=== PATIENT | male | born 1985 | race Caucasian/White ===

== ENCOUNTER 2021-02-14 18:08 | Emergency (ER) | payer SELFPAY ==
--- NOTE | 2021-02-14 18:16 | XRR_ITS ---
PROCEDURE INFORMATION: Exam: XR Right Hand Exam date and time: 02/14/2021 6:16 PM Age: 35 years old Clinical indication: Pain; Hand; Right; Additional info: Focus on the R thumb TECHNIQUE: Imaging protocol: XR Right hand. Views: 3 or more views. COMPARISON: No relevant prior studies available. FINDINGS: Bones/joints: Unremarkable. No fracture or dislocation. Soft tissues: Mild soft tissue swelling is observed in the thumb. XR/XR hand RT min 3V* [id number] IMPRESSION: No fracture or dislocation.
[2021-02-14 18:17] VITALS: BP 189/107; PULSE 83; RESP 18; TEMP 36.8; O2SAT 97; BMI 46.1
--- NOTE | 2021-02-14 18:34 | ED_ITS ---
HPI - Extremity Problem General: Chief complaint: Extremity Injury, Upper Stated complaint: R Swollen Thumb\Cant Bend Time Seen by Provider: 02/14/21 18:27 History of Present Illness: HPI Narrative: Patient complains about right thumb pain's been hurting for the last couple 3 days in the joint area. No known injury. MD Complaint: extremity pain, joint swelling and joint pain Onset (ago): day(s) Pain Consistency: constant Location: right and upper extremity Severity scale (1-10): 3 Quality: aching Radiation: proximal Relieving factors: immobilization Exacerbating factors: range of motion Associated symptoms: Reports no associated symptoms; Deny chest pain, fever(s) or rash Review of Systems Narrative: Blood sugars have been normal Const: Denies: fever(s), chills or body aches Eyes: Denies: change in vision or blurry vision ENMT: Denies: throat pain or nasal congestion Card: Denies: chest pain or dyspnea on exertion Resp: Denies: dyspnea, productive cough or non-productive cough GI: Denies: abdominal pain, nausea or vomiting : Denies: difficulty urinating Musc: Reports: joint pain (Right thumb hurting x2 to 3 days slight redness no known injury); Denies: extremity pain Skin/Breast: Denies: rash Neuro: Denies: headache(s) Psych: Denies: anxiety or depression Albert/Lymph: Denies: easy bruising PFSH ED PFSH: Social History Smoking and tobacco status: former smoker Physical Exam Const: COMMON NORMALS: no acute distress, average body habitus and patient oriented x3 HENMT: COMMON NORMALS: normocephalic HEAD & SCALP: normal to inspection and normocephalic FACE & SINUS: normal facial exam Eye: COMMON NORMALS: conjunctivae normal GENERAL EYE: appearance normal, both eyes and all related structures CONJUNCTIVA: Yes conjunctivae normal Neck/C-Spine: COMMON NORMALS: no JVD Chest: COMMONS NORMALS: normal inspection of the chest Resp: COMMON NORMALS: normal respiratory effort and clear to auscultation bilaterally AUSCULTATION: clear to auscultation bilaterally Cardio: COMMON NORMALS: no JVD, regular rate and regular rhythm RATE: regular rate RHYTHM: regular rhythm GI: COMMON NORMALS: Normal to inspection, nondistended, normoactive bowel sounds present Extremity: COMMON NORMALS: normal to inspection and full ROM RIGHT UPPER EXTREMITY: Yes hand & digits (Right thumb with slight redness to the DIP joint tenderness to palpation mi) Right hand and digits: Yes other (No redness tenderness or swelling to the metacarpal joint) Neuro: COMMON NORMALS: patient oriented x3 Course Vital Signs: Vital signs: Vital Signs Temperature 98.2 F 02/14/21 18:17 Pulse Rate 83 02/14/21 18:17 Respiratory Rate 18 02/14/21 18:17 Blood Pressure 189/107 02/14/21 18:17 Pulse Oximetry 97 02/14/21 18:17 MDM - Extremity (Nontraumatic) MDM Narrative: Medical decision making narrative: X-rays negative, no entry wound to the thumb, does have slight redness. Will treat with steroid with possible joint inflammation and cover with antibiotic due to him being diabetic. Patient has no fever. Has not been sick. Will follow up with his provider in [place]. Discharge Plan Discharge Patient Disposition: Home Clinical Impression: Pain of right thumb Condition: Stable Prescriptions: New clindamycin HCl 300 mg capsule 300 mg PO Q8H 7 Days Qty: 21 RF: 0 prednisone 20 mg tablet 20 mg PO DAILY Qty: 7 RF: 0 No Action metformin 500 mg tablet 500 mg PO BID RF: 0 lisinopril 10 mg tablet 10 mg PO DAILY RF: 0 omeprazole 40 mg capsule,delayed release(DR/EC) 40 mg PO DAILY 56 Days Qty: 60 RF: 0 Lasix 20 mg Tablet 5 mg PO QAM RF: 0 Discharge Orders: Discharge ED (Routine); Ordered 02/14/21 Ordered By: Ad aKte Discharge Diet: Usual diet Discharge Activity: Increase activity as tolerated Activity Restrictions/Additional Instructions: Follow-up with medical provider as directed. Take medications as prescribed. Return to the ER or your medical provider if condition worsens. Please read and understand discharge instructions. If any questions ask please. Coding Level of Care Code ED Countersinker Balance Screw Hole for Delia Henson Exam Comprehensive
== END 2021-02-14 18:34 | disposition home or self-care (01) ==
PROVIDERS: Emergency Provider Nurse Practitioner Family
DX: M79.644 Pain in right finger(s) (principal); Z79.84 Long term (current) use of oral hypoglycemic drugs; Z87.891 Personal history of nicotine dependence
CPT/HCPCS: 73130; 99281

== ENCOUNTER 2021-07-04 10:28 | Emergency (ER) | payer SELFPAY ==
[2021-07-04 10:37] VITALS: BP 160/97; PULSE 108; RESP 18; TEMP 36.7; O2SAT 96; BMI 45.6
--- NOTE | 2021-07-04 10:53 | XR_ITS ---
WS: [id number] PORTABLE CHEST HISTORY: cough COMPARISON: None available. Lungs are clear and well expanded. No pleural effusion or pneumothorax. Cardiac size: Normal. Mediastinum/Aorta: Normal mediastinum. No osseous abnormality seen. XR/XR chest 1V portable [id number] IMPRESSION: Unremarkable portable chest.
[2021-07-04 13:53] LABS: SARS Covid-2 Antigen Negative (Negative)
--- NOTE | 2021-07-04 14:12 | ED_ITS ---
HPI - General Adult General: Chief complaint: General Medical Stated complaint: Pain in chest when breathing with cough Time Seen by Provider: 07/04/21 14:12 Source: patient Mode of arrival: ambulatory Limitations: no limitations History of Present Illness: 35-year-old male presents to the ER today for a cough x1 week and right-sided chest pain that is worse with cough. Patient reports the right-sided chest pain has started in the last 24 to 48 hours but only occurs while he is coughing. This pain is located on the right anterior chest and radiates into the right posterior chest. Patient denies any shortness of breath other than with coughing fits. Patient reports his cough is productive at this time. He denies any congestion, runny nose, headache, ear pain, sore throat. Patient reports he is been taking Mucinex liquid with minimal improvement. His is sick with similar symptoms. Patient denies any nausea or vomiting at this time. Onset (ago): week(s) (1) Treatments prior to arrival: NSAID and other (Mucinex) Review of Systems General: Reports: 10 or more systems reviewed and unremarkable except in HPI and below PFSH ED PFSH: Social History Smoking and tobacco status: former smoker Physical Exam Const: COMMON NORMALS: no acute distress, patient oriented x3, no limitations, healthy appearing, alert and well nourished HENMT: COMMON NORMALS: normocephalic, external ears normal, Normal nasal mucous membranes and turbinates present, moist oral mucous membranes and oropharynx normal HEAD & SCALP: normocephalic NOSE: Normal nasal mucous membranes and turbinates present EXTERNAL EAR: Yes external ears normal Eye: COMMON NORMALS: conjunctivae normal CONJUNCTIVA: Yes conjunctivae normal Neck/C-Spine: COMMON NORMALS: full ROM and no lymphadenopathy Resp: COMMON NORMALS: normal respiratory effort, No retractions, No use of accessory muscles and clear to auscultation bilaterally AUSCULTATION: clear to auscultation bilaterally Cardio: COMMON NORMALS: regular rate and regular rhythm RATE: regular rate RHYTHM: regular rhythm GI: COMMON NORMALS: Normal to inspection, nondistended, normoactive bowel sounds present OTHER: Obese Extremity: COMMON NORMALS: normal to inspection and full ROM Neuro: COMMON NORMALS: patient oriented x3 SENSORIUM/ORIENTATION: Yes alert Psych: COMMON NORMALS: mental status grossly normal, Normal thought process present and cooperative THOUGHT PROCESS: Normal thought process present Skin: COMMON NORMALS: no rashes or lesions noted GENERAL SKIN EXAM: no rashes or lesions noted Course ED course: Patient presents to the ER today for a cough x1 week. Patient reports right-sided chest pain for the last 24 to 48 hours that is worse with cough. Patient denies any fever or chills. We will Covid swab in the ER in addition to a chest x-ray and labs. Vital Signs: Vital signs: Vital Signs Temperature 98.0 F 07/04/21 10:37 Pulse Rate 108 H 07/04/21 10:37 Respiratory Rate 18 07/04/21 10:37 Blood Pressure 160/97 07/04/21 10:37 Pulse Oximetry 96 07/04/21 10:37 [facility] - General Adult Medical Decision Making 35-year-old male presents to the ER today for a productive cough x1 week and right-sided chest pain that is worse with his cough. Patient denies headache, fever, chills, ear pain, congestion, runny nose, sore throat. Patient reports he has been taken Mucinex with minimal improvement. Patient reports the chest pain only occurs when he is coughing and does not appear cardiac related. Patient's is sick with similar symptoms. Chest x-ray is normal that was done in the ER today. Labs are normal. Covid is negative. Discussed with patient this is likely a viral bronchitis. Will treat with steroids at this time. We will also treat with Tessalon Perles for the cough. Recommended patient take anti-inflammatories at home for pain. Increase fluid intake. Continue Mucinex. Follow-up with PCP in 7 to 10 days if no improvement. Return to the ER with any new or worsening symptoms. Patient verbalized understanding and is in agreement with the treatment plan. Lab Data Radiology Impressions Chest X-Ray 07/04/21 10:53 IMPRESSION: Unremarkable portable chest. Laboratory Results SARS-CoV-2 Ag (Rapid) Negative (Negative) 07/04/21 13:05 Discharge Plan Discharge Patient Disposition: Home Clinical Impression: Bronchitis Condition: Stable Prescriptions: New prednisone 20 mg tablet 40 mg PO DAILY 4 Days 0RF Tessalon Perles 100 mg capsule 100 mg PO TID PRN (Reason: cough) Qty: 30 0RF Discontinued prednisone 20 mg tablet 20 mg PO DAILY Qty: 7 0RF No Action metformin 500 mg tablet 500 mg PO BID 0RF lisinopril 10 mg tablet 10 mg PO DAILY 0RF omeprazole 40 mg capsule,delayed release(DR/EC) 40 mg PO DAILY 56 Days Qty: 60 0RF Lasix 20 mg Tablet 5 mg PO QAM 0RF Discharge Orders: Discharge ED (Routine); Ordered 07/04/21 Ordered By: Venus Knight Discharge Diet: Usual diet Discharge Activity: Resume usual activity Patient Instructions: Opioid Safety Activity Restrictions/Additional Instructions: Take Tessalon Perles as prescribed. Take prednisone as prescribed. Push fluids. Take anti-inflammatories for pain. Follow-up with PCP in 7 to 10 days if no improvement. Return to the ER with new or worsening symptoms. Stand Alone Forms: Work/School Release Coding Level of Care Code ED Message And Delivery Service Pricer for Delia Henson
[2021-07-04 14:29] VITALS: BP 163/95; PULSE 82; RESP 18; O2SAT 96
== END 2021-07-04 14:30 | disposition home or self-care (01) ==
PROVIDERS: Emergency Provider Physician Assistant
DX: J40 Bronchitis, not specified as acute or chronic (principal); Z79.84 Long term (current) use of oral hypoglycemic drugs; Z87.891 Personal history of nicotine dependence; Z20.822 Contact with and (suspected) exposure to COVID-19
CPT/HCPCS: 71045; 87426; 99283

== ENCOUNTER 2021-07-17 18:22 | Emergency (ER) | payer SELFPAY ==
[2021-07-17 18:37] VITALS: BP 192/120; PULSE 84; RESP 18; TEMP 37; O2SAT 98; BMI 44.7
--- NOTE | 2021-07-17 19:03 | ED_ITS ---
HPI - Skin/Abscess/Foreign Bdy General: Chief complaint: General Medical Stated complaint: Upper Lip Swollen Time Seen by Provider: 07/17/21 18:52 Source: patient Mode of arrival: ambulatory Limitations: no limitations History of Present Illness: Patient is a 35-year-old male presents to ED today with a complaint of abscess/swelling to his face. Patient states 2 days ago he had a pimple-like lesion under his nose that he popped. He states today he woke up and noticed swelling to the area as well as his upper lip. Patient states he has been applying OTC Prid salve to the lesion. He denies LEVY, visual changes, or focal deficits. MD complaint: abscess/boil Onset (ago): day(s) Tetanus up to date: yes Location: face Pain Consistency: constant Relieving factors: none Exacerbating factors: none Associated symptoms: Reports no associated symptoms; Deny chills, fever(s), nausea or vomiting Review of Systems Const: Denies: fever(s), chills, body aches, fatigue or malaise Eyes: Denies: change in vision, blurry vision, eye discomfort or eye discharge ENMT: Reports: swelling of lips/tongue (upper lip) and sinus pain (related to sore/abscess); Denies: throat pain, odynophagia, hoarseness, mouth pain, oral sores, dental pain, ear or mastoid pain, ear discharge, nasal discharge, nasal congestion or epistaxis Card: Denies: chest pain Resp: Denies: dyspnea GI: Denies: nausea or vomiting Musc: Denies: neck pain Neuro: Denies: headache(s), lack of coordination, dizziness, vertigo or co nfusion PFSH ED PFSH: Social History Smoking and tobacco status: former smoker Physical Exam Const: COMMON NORMALS: no acute distress, patient oriented x3, no limitations and alert GENERAL APPEARANCE: cooperative NUTRITIONAL APPEARANCE: obese ORIENTATION/CONSCIOUSNESS: Yes awake, Yes oriented to person, Yes oriented to place and Yes oriented to time HENMT: COMMON NORMALS: normocephalic, atraumatic and Normal external nose present HEAD & SCALP: normal to inspection, normocephalic and atraumatic FACE & SINUS: sinuses nontender FACE & SINUS IMAGES: 1. small 1cm indurated abscess w/o fluctuance or erythema; edema noted around abscess with some mild upper lip swelling NOSE: Normal external nose present MOUTH: Normal oral and palatal mucosa present, lip normal and tongue normal TEETH & GINGIVA: Yes poor dentition THROAT: posterior oropharynx normal, tonsils normal and uvula midline Eye: COMMON NORMALS: Equal, round and reactive pupils present and EOMs intact bilaterally GENERAL EYE: appearance normal, both eyes and all related structures PUPIL: Yes Equal, round and reactive pupils present Neck/C-Spine: COMMON NORMALS: full ROM and no lymphadenopathy Resp: COMMON NORMALS: normal respiratory effort Cardio: COMMON NORMALS: regular rate and regular rhythm RATE: regular rate RHYTHM: regular rhythm Neuro: LUC COMA SCALE: document GCS findings [place] coma scale eye opening: Spontaneous Luc coma scale verbal response: Orientated [place] coma scale motor response: Obey commands Luc coma scale total score: 15 COMMON NORMALS: patient oriented x3, CN's II-XII intact bilaterally, moves all extremities, no focal motor deficits and no sensory deficits noted SENSORIUM/ORIENTATION: Yes alert, Yes oriented to person, Yes oriented to place and Yes oriented to time Course Vital Signs: Vital signs: Vital Signs Temperature 98.6 F 07/17/21 18:37 Pulse Rate 84 07/17/21 18:37 Respiratory Rate 18 07/17/21 18:37 Blood Pressure 192/120 07/17/21 18:37 Pulse Oximetry 98 07/17/21 18:37 MDM - Skin/Abscess/Foreign Bdy Medicial Decision Making Will place pt on abx and recommend keeping area very clean and avoid picking lesion. Discussed signs/symptoms that would prompt a return to ED evaluation. Patient verbalized understanding. Patient given dose of abx prior to DC. Discharge Plan Discharge Patient Disposition: Home Condition: Stable Prescriptions: New Bactrim DS 800-160 mg tablet 2 tab PO BID 7 Days Qty: 28 0RF No Action metformin 500 mg tablet 500 mg PO BID 0RF lisinopril 10 mg tablet 10 mg PO DAILY 0RF omeprazole 40 mg capsule,delayed release(DR/EC) 40 mg PO DAILY 56 Days Qty: 60 0RF Tessalon Perles 100 mg capsule 100 mg PO TID PRN (Reason: cough) Qty: 30 0RF Lasix 20 mg Tablet 5 mg PO QAM 0RF Discharge Orders: Discharge ED (Routine); Ordered 07/17/21 Ordered By: Alyssa Lauren Activity Restrictions/Additional Instructions: As we discussed fill and begin your antibiotics immediately. You need to keep wound clean with warm soap and water. You may apply triple antibiotic ointment with a Q-tip if needed. You may also do warm compresses to help facilitate drainage. Please avoid poking or squeezing the area. You need to return to the emergency department in to 48 hours if area continues to worsen despite appropriate antibiotics. I hope you begin to feel better soon. Stand Alone Forms: Work/School Release Coding Level of Care Code ED Lozenge Dough Mixer for Tayag Fwd Exam Expanded Problem Focused
[2021-07-17] MEDS: sulfamethoxazole-trimeth DS 160-800 mg Tablet 2 TAB PO (19:07)
== END 2021-07-17 19:13 | disposition home or self-care (01) ==
PROVIDERS: Emergency Provider Physician Assistant
DX: L02.01 Cutaneous abscess of face (principal); Z79.84 Long term (current) use of oral hypoglycemic drugs; Z87.891 Personal history of nicotine dependence
CPT/HCPCS: 99282

== ENCOUNTER 2021-08-27 09:34 | Emergency (ER) | payer SELFPAY ==
[2021-08-27 11:05] VITALS: BP 218/122; PULSE 76; RESP 14; TEMP 36.7; O2SAT 95; BMI 45.6
--- NOTE | 2021-08-27 11:30 | ED_ITS ---
HPI - Skin/Abscess/Foreign Bdy General: Chief complaint: Skin/Abscess/Foreign Body Stated complaint: wound on face Time Seen by Provider: 08/27/21 11:15 History of Present Illness: Patient is a 35-year-old male comes to the ED with sore on face. Sore started approximately 5 days ago. Sores located on the skin in between upper lip and nose. Sore continued to get larger and more painful. Says yesterday it was open and draining some pus. He had something similar to this before a month ago and was put on antibiotic and it resolved. Denies any fevers or any other symptoms. Associated symptoms: Deny chills, fever(s), nausea or vomiting Review of Systems Const: Denies: fever(s), chills or fatigue Eyes: Denies: change in vision or eye discomfort ENMT: Denies: throat pain, odynophagia, nasal discharge or nasal congestion Card: Denies: chest pain, palpitations, edema, swelling of feet/ankles, dyspnea on exertion or orthopnea Resp: Denies: dyspnea, productive cough or non-productive cough GI: Denies: abdominal pain, nausea, vomiting, diarrhea, constipation or hematochezia : Denies: flank pain, difficulty urinating, dysuria or hematuria Musc: Denies: neck pain, back pain or extremity swelling Skin/Breast: Reports: new lesions (Sore on face between upper lip and nose.); Denies: rash Neuro: Denies: headache(s), numbness in extremities or weakness in extremities [facility] ED PFSH: Medical History No pertinent family history Surgical History No pertinent past surgical history Social History Smoking and tobacco status: former smoker Physical Exam Const: COMMON NORMALS: no acute distress, patient oriented x3 and alert GENERAL APPEARANCE: cooperative HENMT: COMMON NORMALS: normocephalic HEAD & SCALP: normocephalic FACE & SINUS IMAGES: 1. Small 0.75 cm indurated abscess without fluctuance. There is some erythema noted and abscesses tender upon palpation. MOUTH: Normal oral and palatal mucosa present THROAT: posterior oropharynx no rmal and uvula midline Neck/C-Spine: COMMON NORMALS: supple GENERAL: Yes normal visual inspection Resp: COMMON NORMALS: normal respiratory effort, No retractions, No use of accessory muscles and clear to auscultation bilaterally AUSCULTATION: clear to auscultation bilaterally Cardio: COMMON NORMALS: regular rate, regular rhythm, S1 normal heart sound present, S2 normal heart sound present, No gallops present (Cardio), No clicks present (Cardio), No murmurs present (Cardio) and Peripheral pulses 2+ throughout RATE: regular rate RHYTHM: regular rhythm HEART SOUNDS: S1 normal heart sound present and S2 normal heart sound present PERIPHERAL PULSES: Peripheral pulses 2+ throughout GI: COMMON NORMALS: Normal to inspection, nondistended, normoactive bowel sounds present, Soft to palpation, non-tender and no masses PALPATION: Yes Soft to palpation : COMMON NORMALS: Yes no CVA tenderness BLADDER/KIDNEY EXAM: Yes no CVA tenderness Back/Pelvis: COMMON NORMALS: no CVA tenderness Extremity: COMMON NORMALS: normal to inspection Neuro: COMMON NORMALS: patient oriented x3 and moves all extremities SENSORIUM/ORIENTATION: Yes alert Skin: GENERAL SKIN EXAM: dry skin Course Vital Signs: Vital signs: Vital Signs Temperature 98.0 F 08/27/21 11:05 Pulse Rate 76 08/27/21 11:05 Respiratory Rate 14 08/27/21 11:05 Blood Pressure 218/122 08/27/21 11:05 Pulse Oximetry 95 08/27/21 11:05 MDM - Skin/Abscess/Foreign Bdy Medicial Decision Making Patient has a small abscess on face. I told him to avoid picking at lesion and to keep area clean. Patient was discharged home on antibiotic and was also given an antibiotic ointment to apply on the lesion. Discussed signs and symptoms that would prompt a return to ED for reevaluation. Patient told to follow-up with his PCP in the next 3 to 5 days for reevaluation. Patient understood and agreed with plan. Discharge Plan Discharge Patient Disposition: Home Clinical Impression: Disorder of skin and subcutaneous tissue Condition: Stable Prescriptions: New clindamycin HCl 150 mg capsule 300 mg PO QID 7 Days Qty: 56 0RF mupirocin 2 % ointment 1 applic topical DAILY PRN (Reason: facial lesion) Qty: 15 0RF No Action metformin 500 mg tablet 500 mg PO BID 0RF lisinopril 10 mg tablet 10 mg PO DAILY 0RF omeprazole 40 mg capsule,delayed release(DR/EC) 40 mg PO DAILY 56 Days Qty: 60 0RF Tessalon Perles 100 mg capsule 100 mg PO TID PRN (Reason: cough) Qty: 30 0RF Lasix 20 mg Tablet 5 mg PO QAM 0RF Discharge Orders: Discharge ED (Routine); Ordered 08/27/21 Ordered By: Glenn Duvall Discharge Diet: Regular Discharge Activity: Increase activity as tolerated Patient Instructions: Abscess (ED), Abscess Follow-up (ED) Activity Restrictions/Additional Instructions: Follow-up with medical provider as directed in the next 3 to 5 days for reevaluation. Take medications as prescribed. Keep area clean and avoid picking at lesion. Return to the ER or your medical provider if condition worsens. Please read and understand discharge instructions. Thank you for choosing [facility] for your healthcare needs today. Please realize this is an emergency room and that we are providing you with a medical screening exam and this may not be complete and all inclusive of all the testing and or work up that you may need to determine your ailment or severity of your illness. It is very important that you follow up as instructed or that you return to the Emergency Department should you have concerns or if your condition changes or worsens in any way. Coding Level of Care Code ED Learning Administrator for Delia Henson Exam Comprehensive
[2021-08-27] MEDS: ibuprofen 800 mg tablet PO (11:38)
[2021-08-27] MEDS: clindamycin 150 mg Capsule 300 MG PO (12:00)
== END 2021-08-27 12:06 | disposition home or self-care (01) ==
PROVIDERS: Emergency Provider Physician Assistant
DX: L02.01 Cutaneous abscess of face (principal)
CPT/HCPCS: 99283

== ENCOUNTER 2021-12-09 16:25 | Emergency (ER) | payer OTHER, SELFPAY ==
[2021-12-09 17:26] VITALS: BP 148/85; PULSE 106; RESP 18; TEMP 36.8; O2SAT 97; BMI 49.5
--- NOTE | 2021-12-09 17:41 | USR_ITS ---
PROCEDURE INFORMATION: Exam: US Scrotum Exam date and time: 12/09/2021 5:54 PM Age: 36 years old Clinical indication: Scrotum pain; Additional info: Testicular pain TECHNIQUE: Imaging protocol: Real-time ultrasound of the scrotum and contents with color Doppler and image documentation. COMPARISON: No relevant prior studies available. FINDINGS: Right testicle: Right testicle measures 2.6 x 2.2 x 4.3 cm. Tiny simple appearing cyst along the superior aspect of the testicle measuring 2 mm in size. No mass. No torsion. Normal vascular flow. Left testicle: Left testicle measures 2.5 x 2.0 x 4.4 cm. No mass. No torsion. Normal vascular flow. Epididymides: Normal. Scrotum: Borderline mild left-sided varicocele measuring 2 mm in diameter with Valsalva maneuver. US/US scrotum [id number] IMPRESSION: Borderline mild left-sided varicocele. Otherwise, no acute findings.
--- NOTE | 2021-12-09 17:42 | ED_ITS ---
HPI - Male Genitourinary General: Chief complaint: Urogenital-Male Stated complaint: abd pain Time Seen by Provider: 12/09/21 17:41 History of Present Illness: 36-year-old male patient comes in today for complaints of left testicular pain. Patient reports a previous episode in March of last year that resolved on its own. Patient is in a monogamous relationship with his girlfriend who has had a recent with delivery 4 months ago. Patient reports some occasional back pain. Patient denies any fever or nausea or vomiting. Patient appears nontoxic. Patient appears in mild to no pain. Review of Systems Const: Denies: fever(s) Card: Denies: chest pain Resp: Denies: dyspnea : Reports: testicular pain Musc: Reports: back pain PFSH ED PFSH: Medical History No pertinent family history Surgical History No pertinent past surgical history Social History Smoking and tobacco status: former smoker Physical Exam Const: COMMON NORMALS: alert HENMT: COMMON NORMALS: normocephalic HEAD & SCALP: normocephalic Neck/C-Spine: COMMON NORMALS: full ROM Resp: COMMON NORMALS: normal respiratory effort Cardio: COMMON NORMALS: regular rate RATE: regular rate : BLADDER/KIDNEY EXAM: Yes CVA tenderness on the left PENIS: normal penis and circumcised MEATUS: meatus normal SCROTUM: Yes testes descended bilaterally TESTES: Yes testicular lie normal, No Enlarged testicle(s) pres ent, Yes testicular tenderness Testicular tenderness laterality: left and Yes epididymides normal Back/Pelvis: GENERAL BACK: Yes CVA tenderness Extremity: COMMON NORMALS: normal to inspection Neuro: SENSORIUM/ORIENTATION: Yes alert Skin: COMMON NORMALS: no rashes or lesions noted GENERAL SKIN EXAM: no rashes or lesions noted Course Vital Signs: Vital signs: Vital Signs Temperature 98.2 F 12/09/21 17:26 Pulse Rate 87 12/09/21 18:07 Respiratory Rate 16 12/09/21 18:07 Blood Pressure 185/90 12/09/21 18:07 Pulse Oximetry 96 12/09/21 18:07 MDM - Male Medical Decision Making 36-year-old male patient comes in today with complaints of left testicular pain. Patient reports a previous episode in March that resolved on its own. Patient appears nontoxic. Patient appears in mild to no pain. Exam noted no abnormal appearance to the scrotum or testicle. Patient did have some mild tenderness on palpation. No hernia was palpated. Differential diagnosis includes but not limited to epididymitis, varicocele, hydrocele, renal calculi. Urinalysis was unremarkable except for trace of glucose. Ultrasound of the testicle noted a varicocele. I feel the patient's pain probably secondary to the varicocele. Recommended supportive underwear and follow-up with urology as needed for worsening symptoms. Patient reported understanding and agreed to plan. Gonorrhea and Chlamydia panel was also ordered and is outstanding. Lab Data Radiology Impressions Scrotum Ultrasound 12/09/21 17:41 IMPRESSION: Borderline mild left-sided varicocele. Otherwise, no acute findings. Laboratory Results Urine Color Yellow (Yellow) 12/09/21 18:04 Urine Appearance Clear (CLEAR) 12/09/21 18:04 Urine pH 5 (5-7) 12/09/21 18:04 Ur Specific [place] 1.020 (1.005-1.030) 12/09/21 18:04 Urine Protein Neg (Negative) 12/09/21 18:04 Urine Glucose (UA) Trace (Normal) H 12/09/21 18:04 Urine Ketones Negative (Negative) 12/09/21 18:04 Urine Blood Neg (Negative) 12/09/21 18:04 Urine Nitrate Negative (Negative) 12/09/21 18:04 Urine Bilirubin Neg (Negative) 12/09/21 18:04 Urine Urobilinogen Norm mg/dL (Negative) 12/09/21 18:04 Ur Leukocyte Esterase Negative (Negative) 12/09/21 18:04 Discharge Plan Discharge Patient Disposition: Home Clinical Impression: Left varicocele Condition: Stable Prescriptions: No Action metformin 500 mg tablet 500 mg PO BID 0RF lisinopril 10 mg tablet 10 mg PO DAILY 0RF furosemide [Lasix] 20 mg Tablet 5 mg PO QAM 0RF Discharge Orders: Discharge ED (Routine); Ordered 12/09/21 Ordered By: Deven Lauren Discharge Diet: Usual diet Discharge Activity: Increase activity as tolerated Patient Instructions: Varicocele (ED) Activity Restrictions/Additional Instructions: Activity as tolerated. Wear supportive underwear. Use acetaminophen and ibuprofen for pain. Follow-up with urologist for further instruction. Return to ER for new concerns. Stand Alone Forms: Work/School Release Coding Level of Care Code ED Complaint Investigations Officer for Delia Fwd Exam Comprehensive
[2021-12-09 18:07] VITALS: BP 185/90; PULSE 87; RESP 16; O2SAT 96
[2021-12-09 18:32] LABS: Add Urine Microscopic? NO; Bilirubin Urine Neg (Negative); Blood Urine Neg (Negative); Charge for UA Resulting for Rev; Ketones Urine Negative (Negative); Leukocyte Esterase Urine Negative (Negative); Nitrate Urine Negative (Negative); Protein Urine Neg (Negative); Urine Appearance Clear (CLEAR); Urine Color Yellow (Yellow); Urobilinogen Urine Norm (Negative); pH Urine 5 (5-7)
[2021-12-09 18:33] LABS: Glucose Urine UA Trace (Normal)
[2021-12-09 18:43] VITALS: BP 167/95
== END 2021-12-09 18:45 | disposition home or self-care (01) ==
PROVIDERS: Emergency Provider Nurse Practitioner Family
DX: I86.1 Scrotal varices (principal); Z79.84 Long term (current) use of oral hypoglycemic drugs; Z87.891 Personal history of nicotine dependence
CPT/HCPCS: 76870; 81003; 87491; 87591; 99284

== ENCOUNTER 2022-08-26 01:13 | Emergency (ER) | payer OTHER, SELFPAY ==
--- NOTE | 2022-08-26 01:15 | XRR_ITS ---
PROCEDURE INFORMATION: Exam: XR Chest Exam date and time: 08/26/2022 1:41 AM Age: 36 years old Clinical indication: Chest pressure; Patient HX: C/O chest pain; Additional info: Cp TECHNIQUE: Imaging protocol: Radiologic exam of the chest. Views: 1 view. Total images: 1 COMPARISON: No relevant prior studies available. FINDINGS: Lungs: Unremarkable. No consolidation. Pleural spaces: Unremarkable. No pleural effusion. No pneumothorax. Heart/Mediastinum: Unremarkable. No cardiomegaly. Bones/joints: Unremarkable. XR/XR chest 1V portable [id number] IMPRESSION: No acute findings.
[2022-08-26 01:19] VITALS: PULSE 104; RESP 22; O2SAT 98; BMI 50.2
--- NOTE | 2022-08-26 01:20 | ED_ITS ---
HPI - Chest Pain General: Chief Complaint: Chest Pain Stated Complaint: chest pain when breathing Time Seen by Provider: 08/26/22 01:15 Source: patient Mode of arrival: ambulatory Limitations: no limitations History of Present Illness: 36-year-old male states he had a cough that is been a dry cough over the last 2 days states he is also been having a sharp chest pain states it is worse with his coughing with deep inspiration denies any recent trips denies any resting pain denies any pain at this time he does have a history of hypertension denies any nausea denies diaphoresis denies any vomiting. Associated symptoms: Deny abdominal pain, fever(s), nausea or vomiting Review of Systems Const: Denies: fever(s), chills, body aches or change in appetite Eyes: Denies: blurry vision or eye discomfort ENMT: Denies: throat pain or dental pain Card: Reports: chest pain Resp: Reports: non-productive cough GI: Denies: abdominal pain, nausea, vomiting or diarrhea : Denies: dysuria Musc: Denies: neck pain or back pain Skin/Breast: Denies: rash Neuro: Denies: headache(s) Psych: Denies: depression Albert/Lymph: Denies: easy bruising All/Imm: Denies: urticaria PFSH ED PFSH: Medical History No pertinent family history Surgical History No pertinent past surgical history Social History Smoking and tobacco status: former smoker Physical Exam Const: COMMON NORMALS: no acute distress, patient oriented x3 and healthy appearing HENMT: COMMON NORMALS: normocephalic and atraumatic HEAD & SCALP: normocephalic and atraumatic Eye: COMMON NORMALS: Equal, round and reactive pupils present and EOMs intact bilaterally PUPIL: Yes Equal, round and reactive pupils present Neck/C-Spine: COMMON NORMALS: full ROM and supple Chest: COMMONS NORMALS: normal inspection of the chest and normal palpation of entire chest wall Resp: COMMON NORMALS: normal respiratory effort, No retractions, No use of accessory muscles and clear to auscultation bilaterally AUSCULTATION: clear to auscultation bilaterally Cardio: COMMON NORMALS: regular rhythm and No murmurs present (Cardio) RATE: tachycardic RHYTHM: regular rhythm GI: COMMON NORMALS: Normal to inspection, nondistended, normoactive bowel sounds present, Soft to palpation, non-tender and no masses PALPATION: Yes Soft to palpation Extremity: COMMON NORMALS: normal to inspection and full ROM Neuro: COMMON NORMALS: patient oriented x3, moves all extremities and no focal motor deficits Psych: COMMON NORMALS: mental status grossly normal, Normal thought process present and cooperative THOUGHT PROCESS: Normal thought process present Skin: COMMON NORMALS: no rashes or lesions noted and no wounds GENERAL SKIN EXAM: no rashes or lesions noted Course Vital Signs: Vital signs: Vital Signs Temperature 97.9 F 08/26/22 01:36 Pulse Rate 87 08/26/22 01:53 Respiratory Rate 18 08/26/22 01:52 Blood Pressure 160/98 08/26/22 01:52 Pulse Oximetry 96 08/26/22 01:53 Oxygen Delivery Me thod 08/26/22 01:53 MDM - Chest Pain Medical Decision Making Patient presents for chest pain that is atypical in nature troponin normal D- dimer negative EKG x-ray are normal here as pains atypical likely pleuritic from his cough he is stable for discharge he does take ibuprofen he is to return return if worsening and follow-up with PCP. Lab Data 08/26/22 01:30 08/26/22 01:30 Laboratory Results WBC 9.7 10^3/uL (4.0-10.0) 08/26/22 01:30 RBC 5.30 10^6/uL (4.1-5.3) 08/26/22 01:30 Hgb 14.5 g/dL (11.7-16.6) 08/26/22 01:30 Hct 44.4 % (42.0-52.0) 08/26/22 01:30 MCV 83.8 fl (80-94) 08/26/22 01:30 MCH 27.4 pg (28.0-34.0) L 08/26/22 01:30 MCHC 32.7 g/dL (30.0-36.0) 08/26/22 01:30 RDW 13.1 % (12.1-15.1) 08/26/22 01:30 Plt Count 256 10^3/cmm (130-400) 08/26/22 01:30 MPV 10.8 fL (7.4-10.4) H 08/26/22 01:30 Neut % (Auto) 51.7 % 08/26/22 01:30 Lymph % (Auto) 36.0 % 08/26/22 01:30 [place] % (Auto) 8.3 % 08/26/22 01:30 Eos % (Auto) 3.1 % 08/26/22 01:30 Baso % (Auto) 0.6 % 08/26/22 01:30 Neut # (Auto) 5.03 10^3/uL (1.8-7.7) 08/26/22 01:30 Lymph # (Auto) 3.5 10^3/uL (0.8-4.8) 08/26/22 01:30 [place] # (Auto) 0.8 10^3/uL (0.2-0.9) 08/26/22 01:30 Eos # (Auto) 0.3 10^3/uL (0.0-0.8) 08/26/22 01:30 Baso # (Auto) 0.1 10^3/uL (0.0-0.1) 08/26/22 01:30 Nucleated RBC % (auto) 0 % 08/26/22 01:30 Nucleated RBCs # 0.0 /100WBC 08/26/22 01:30 PT 13.30 SECONDS (12.1-14.9) 08/26/22 01:30 INR 0.98 (0.8-1.2) 08/26/22 01:30 D-Dimer 0.31 ug/mIFEU (0-0.59) 08/26/22 01:30 Sodium 135 mmol/L (136-145) L 08/26/22 01:30 Potassium 4.2 mmol/L (3.5-5.1) 08/26/22 01:30 Chloride 98 mmol/L (98-107) 08/26/22 01:30 Carbon Dioxide 24 mmol/L (22-29) 08/26/22 01:30 Anion Gap 17.2 (5-19) 08/26/22 01:30 BUN 18 mg/dL (6-20) 08/26/22 01:30 Creatinine 1.0 mg/dL (0.7-1.2) 08/26/22 01:30 GFR Calculation 84.5 mL/min (90-130) L 08/26/22 01:30 Glucose 249 mg/dL (65-115) H 08/26/22 01:30 Calculated Osmolality 290 mOsm/kg (285-295) 08/26/22 01:30 Calcium 9.0 mg/dL (8.5-10.5) 08/26/22 01:30 Total Bilirubin 0.2 mg/dL (0.15-1.2) 08/26/22 01:30 AST 32 U/L (0-40) 08/26/22 01:30 ALT 62 U/L (0-41) H 08/26/22 01:30 Alkaline Phosphatase 83 U/L (40-130) 08/26/22 01:30 Troponin T Baseline 6 ng/L (0-15) 08/26/22 01:30 Total Protein 7.7 g/dL (6.6-8.7) 08/26/22 01:30 Albumin 4.3 g/dL (3.5-5.2) 08/26/22 01:30 Globulin 3.4 g/dL (1.3-4.6) 08/26/22 01:30 EKG Data EKG 1: I personally reviewed and interpreted this EKG as follows: EKG interpretation date: 08/26/22 EKG interpretation time: 01:21 Interpretation: nsr hr [address] or t wave abonrmalities qrs 110 qtc 406 Discharge Plan Discharge Patient Disposition: Home Clinical Impression: Chest pain Condition: Stable Prescriptions: No Action metformin 500 mg tablet 500 mg PO BID lisinopril 10 mg tablet 10 mg PO DAILY furosemide [Lasix] 20 mg Tablet 5 mg PO QAM Discharge Orders: Discharge ED (Routine); Ordered 08/26/22 Ordered By: Leticia Ba Discharge Diet: Advance as tolerated Discharge Activity: Resume usual activity Patient Instructions: Chest Pain (ED) Stand Alone Forms: Work/School Release Coding Level of Care Code ED Ditching Machine Engineer for Delia Henson
[2022-08-26 01:21] VITALS: PULSE 100; O2SAT 98
--- NOTE | 2022-08-26 01:21 | ECG_ITS ---
[facility] Test Date: 2022-08-26 Pat Name: Yogi Hurtado Department: Room: Gender: Male Oral Surgeon: : 1985 Requested By: Leticia Ba Order Number: [id number] Kym MD: Zeynep Hathaway M.D. Measurements Intervals [place] Rate: 96 P: 0 WV: 154 QRS: 121 QRSD: 110 T: -14 QT: 352 QTc: 447 Interpretive Statements SINUS RHYTHM RIGHT AXIS DEVIATION [QRS AXIS > 100] POSSIBLE ANTERIOR MYOCARDIAL INFARCTION , PROBABLY OLD [30 ms Q WAVE IN V3/V4, OR R < 0.2 mV IN V4] Nonspecific T wave changes No previous ECG available for comparison Electronically Signed On 08-27-2022 0:08:39 CDT by Zeynep Hathaway M.D. [id number]
[2022-08-26] MEDS: labetalol 5 mg/mL SDV 20mL 10 MG IVP (01:31)
[2022-08-26 01:36] VITALS: PULSE 86; TEMP 36.6; O2SAT 97
[2022-08-26 01:38] LABS: Basophils # 0.1 10^3/uL (0.0-0.1); Basophils % 0.6 %; Eosinophils # 0.3 10^3/uL (0.0-0.8); Eosinophils % 3.1 %; Hematocrit 44.4 % (42.0-52.0); Hemoglobin 14.5 g/dL (11.7-16.6); Lymphocytes # 3.5 10^3/uL (0.8-4.8); Mean Corpuscular HGB Conc 32.7 g/dL (30.0-36.0); Mean Corpuscular Hemoglobin 27.4 pg (28.0-34.0); Mean Corpuscular Volume 83.8 fl (80-94); Mean Platelet Volume 10.8 fL (7.4-10.4); Monocytes # 0.8 10^3/uL (0.2-0.9); Monocytes % 8.3 %; Neutrophils # 5.03 10^3/uL (1.8-7.7); Neutrophils % 51.7 %; Nucleated Red Blood Cells % 0 %; Platelet Count 256 10^3/cmm (130-400); Red Cell Distribution Width 13.1 % (12.1-15.1); White Blood Count 9.7 10^3/uL (4.0-10.0)
[2022-08-26 01:49] LABS: INR 0.98 (0.8-1.2)
[2022-08-26 01:52] VITALS: BP 160/98; PULSE 88; RESP 18; O2SAT 97
[2022-08-26 01:52] LABS: D Dimer 0.31 ug/mIFEU (0-0.59)
[2022-08-26 01:53] VITALS: PULSE 87; O2SAT 96
[2022-08-26 01:57] LABS: Troponin(5th) Baseline 6 ng/L (0-15)
[2022-08-26 02:04] LABS: Alanine Aminotransferase 62 U/L (0-41); Albumin Level 4.3 g/dL (3.5-5.2); Alkaline Phosphatase 83 U/L (40-130); Anion Gap 17.2 (5-19); Aspartate Amino Transferase 32 U/L (0-40); Blood Urea Nitrogen 18 mg/dL (6-20); Carbon Dioxide 24 mmol/L (22-29); Chloride 98 mmol/L (98-107); Globulin 3.4 g/dL (1.3-4.6); Glomerular Filtration Rate 84.5 mL/min (90-130); Glucose 249 mg/dL (65-115); Osmolality Calculated 290 mOsm/kg (285-295); Potassium 4.2 mmol/L (3.5-5.1); Sodium 135 mmol/L (136-145); Total Bilirubin 0.2 mg/dL (0.15-1.2); Total Protein 7.7 g/dL (6.6-8.7)
[2022-08-26 02:29] VITALS: BP 141/91; PULSE 88; RESP 16; O2SAT 97
--- NOTE | 2022-09-02 13:08 | DCPLANNER ---
demand generator manager called patient due to no primary care physician - no answer at this time
== END 2022-08-26 02:29 | disposition home or self-care (01) ==
PROVIDERS: Emergency Provider Emergency Medicine
DX: R07.9 Chest pain, unspecified (principal); Z79.84 Long term (current) use of oral hypoglycemic drugs; Z87.891 Personal history of nicotine dependence
CPT/HCPCS: 71045; 80053; 84484; 85025; 85378; 85610; 93005; 96374; 99285; J3490

== ENCOUNTER 2022-11-26 14:38 | Emergency (ER) | payer OTHER, SELFPAY ==
[2022-11-26 14:47] VITALS: BP 153/95; PULSE 99; RESP 16; O2SAT 97; BMI 50.2
--- NOTE | 2022-11-26 15:11 | W.ED.SKABFB ---
HPI - Skin/Abscess/Foreign Bdy General: Chief complaint: Skin/Abscess/Foreign Body Stated complaint: poison iza on all limbs Time Seen by Provider: 11/26/22 15:03 History of Present Illness: Patient is in today with itching rash worsening since Wednesday. He reports that he had been weed eating and mowing and got into some poison iza. He reports that it is now spread to both upper and lower extremities and also around his eyebrows. He states that he frequently gets poison iza. He does offer that he is diabetic however he monitors his blood sugars at home and they have been mostly normal. He states that he has taken steroids in the past with no adverse effects. Associated symptoms: Deny chills, fever(s), nausea or vomiting Review of Systems Const: Denies: fever(s) or chills Card: Denies: chest pain or palpitations Resp: Denies: dyspnea, productive cough or non-productive cough GI: Denies: abdominal pain, nausea or vomiting Skin/Breast: Reports: rash and pruritus [facility] ED PFSH: Medical History No pertinent family history Surgical History No pertinent past surgical history Social History Smoking and tobacco status: former smoker Physical Exam Const: COMMON NORMALS: no acute distress, patient oriented x3 and alert Resp: COMMON NORMALS: normal respiratory effort, No use of accessory muscles and clear to auscultation bilaterally AUSCULTATION: clear to auscultation bilaterally Cardio: COMMON NORMALS: regular rate, regular rhythm, S1 normal heart sound present and S2 normal heart sound present RATE: regular rate RHYTHM: regular rhythm HEART SOUNDS: S1 normal heart sound present and S2 normal heart sound present Neuro: COMMON NORMALS: patient oriented x3 SENSORIUM/ORIENTATION: Yes alert Skin: NARRATIVE SKIN EXAM: Slightly raised red rash of bilateral lower extremities and bilateral upper extremities with this dry flaking red rash around bilateral eyes. Course Vital Signs: Vital signs: Vital Signs Pulse Rate 99 11/26/22 14:47 Respiratory Rate 16 11/26/22 14:47 Blood Pressure 153/95 11/26/22 14:47 Pulse Oximetry 97 11/26/22 14:47 Oxygen Delivery Me thod Room Air 11/26/22 14:47 MDM - Skin/Abscess/Foreign Bdy Medicial Decision Making Consider contact dermatitis, poison iza, allergic reaction We will treat patient with steroid injection today given that the rash is now affecting his face. Advised him of possible benefits and side effects of medication provided today. Advised him to monitor his blood sugar closely as steroids can definitely increase the blood sugar. Advised him of conservative treatment and typical course of illness. Follow-up with primary care provider as needed. Return to the ER for any new or worsening symptoms. Discharge Plan Discharge Patient Disposition: Home Clinical Impression: Contact dermatitis Condition: Stable Prescriptions: No Action metformin 500 mg tablet 500 mg PO BID lisinopril 10 mg tablet 10 mg PO DAILY furosemide [Lasix] 20 mg Tablet 5 mg PO QAM Discharge Orders: Discharge ED (Routine); Ordered 11/26/22 Ordered By: Porsche Black Discharge Diet: Usual diet Discharge Activity: Resume usual activity Patient Instructions: Poison Iza (ED) Activity Restrictions/Additional Instructions: Steroid injection was given today to help manage poison iza reaction. Make sure that you are monitoring your blood sugars closely. Return to the ER as needed for any new or worsening symptoms Coding Level of Care Code ED [place] Machine Operator Helper for Delia Henson
[2022-11-26] MEDS: triamcinolone 40 mg/mL SDV IM (15:27)
[2022-11-26] MEDS: dexamethasone 4 mg/mL INJ IM (15:28)
== END 2022-11-26 15:34 | disposition home or self-care (01) ==
PROVIDERS: Emergency Provider Nurse Practitioner Family
DX: L25.9 Unspecified contact dermatitis, unspecified cause (principal); Z87.891 Personal history of nicotine dependence
CPT/HCPCS: 96372; 99284; J1100; J3301

== ENCOUNTER → 2023-04-23 15:17 | Outpatient (BNVA) | payer OTHER, SELFPAY | PROVIDERS: Visit Provider Nurse Practitioner | DX: I10 Essential (primary) hypertension (principal); E11.9 Type 2 diabetes mellitus without complications; Z76.89 Persons encountering health services in other specified circumstances | CPT/HCPCS: 82962 ==

== ENCOUNTER → 2023-04-26 16:47 | Outpatient (BNVA) | payer OTHER, SELFPAY | PROVIDERS: Visit Provider Nurse Practitioner | DX: I10 Essential (primary) hypertension (principal); E11.9 Type 2 diabetes mellitus without complications | CPT/HCPCS: 80053; 80061; 83036; 84443; 85025 ==

== ENCOUNTER → 2023-08-03 16:46 | Outpatient (BNVA) | payer OTHER, SELFPAY | PROVIDERS: PCP Nurse Practitioner; Visit Provider Nurse Practitioner | DX: E11.9 Type 2 diabetes mellitus without complications (principal) | CPT/HCPCS: 83036 ==

== ENCOUNTER → 2023-09-10 14:32 | Outpatient (BNVA) | payer OTHER, SELFPAY | PROVIDERS: PCP Nurse Practitioner; Visit Provider Nurse Practitioner | DX: E11.9 Type 2 diabetes mellitus without complications (principal) | CPT/HCPCS: 83036 ==

== ENCOUNTER → 2023-12-24 12:58 | Outpatient (BNVA) | payer OTHER, SELFPAY | PROVIDERS: PCP Nurse Practitioner; Visit Provider Nurse Practitioner | DX: E11.9 Type 2 diabetes mellitus without complications (principal) | CPT/HCPCS: 83036 ==

== ENCOUNTER 2024-05-26 18:32 | Emergency (ER) | payer OTHER, SELFPAY ==
[2024-05-26 18:48] VITALS: BP 214/123; PULSE 79; RESP 18; TEMP 36.7; O2SAT 98; BMI 48.8
--- NOTE | 2024-05-26 18:52 | XRR_ITS ---
PROCEDURE INFORMATION: Exam: XR Right Foot Exam date and time: 05/26/2024 9:12 PM Age: 38 years old Clinical indication: Pain; Ankle and foot; Right; Additional info: RT foot/ankle pain after pop today TECHNIQUE: Imaging protocol: Radiologic exam of the right foot. Views: 3 or more views. COMPARISON: CR XR ankle RT min 3V* [id number] 05/26/2024 9:11 PM FINDINGS: Bones/joints: Stable metallic fixation of healed distal fibular shaft fracture. 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 Possible healed posterior malleolar fracture noted on the lateral view. Soft tissues: Unusual 1.2 x 0.4 cm soft tissue ossification or calcification lateral to the calcaneal cuboid joint. Possible sequela from remote trauma. XR/XR foot RT min 3V* [id number] IMPRESSION: 1. Stable metallic fixation of healed distal fibular shaft fracture. 2. Unusual 1.2 x 0.4 cm soft tissue ossification or calcification lateral to the calcaneal cuboid joint. Possible sequela from remote trauma. 3. 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 4. Possible healed posterior malleolar fracture noted on the lateral view.
--- NOTE | 2024-05-26 18:52 | XRR_ITS ---
PROCEDURE INFORMATION: Exam: XR Right Ankle Exam date and time: 05/26/2024 9:11 PM Age: 38 years old Clinical indication: Ankle and foot; Right; Prior surgery; Surgery date: 6+ months; Surgery type: RT fibula orif; Patient HX: RT foot/ankle pain after pop today TECHNIQUE: Imaging protocol: Radiologic exam of the right ankle. Views: 3 or more views. COMPARISON: No relevant prior studies available. FINDINGS: Bones/joints: Stable metallic fixation of healed distal fibular shaft fracture. 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 Possible healed posterior malleolar fracture noted on the lateral view. Probable partial posttraumatic ossification of the tibial portion of the interosseous ligament between the tibia and fibula. Soft tissues: Unusual 1.2 x 0.4 cm soft tissue ossification or calcification lateral to the calcaneal cuboid joint. Possible sequela from remote trauma. XR/XR ankle RT min 3V* [id number] IMPRESSION: 1. Stable metallic fixation of healed distal fibular shaft fracture. 2. Unusual 1.2 x 0.4 cm soft tissue ossification or calcification lateral to the calcaneal cuboid joint. Possible sequela from remote trauma. 3. 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 4. Possible healed posterior malleolar fracture noted on the lateral view. 5. Probable partial posttraumatic ossification of the tibial portion of the interosseous ligament between the tibia and fibula.
[2024-05-26 19:24] VITALS: BP 199/114
--- NOTE | 2024-05-26 19:24 | PC.NURSE ---
Pt is aware his BP is high. Pt states he takes Lisinopril, but hasn't taken it in a couple days. Denies symptoms.
--- NOTE | 2024-05-26 21:10 | ED_ITS ---
HPI - Extremity Problem General: Chief complaint: Extremity Problem,Nontraumatic Stated complaint: right foot pain Time Seen by Provider: 05/26/24 21:10 History of Present Illness: The patient presents to the emergency department with chief complaint of severe foot pain. The pain is described as throbbing and worsens with certain positions and movements. The onset of pain was on Wednesday, and the patient reports having difficulty working due to the pain. The patient experienced some relief after soaking the foot in warm water. The patient has a history of an ankle fracture on the same side, which was treated with hardware placement following a four-espinal accident. The patient reports no pain in the ankle area, and the pain is localized more towards the ball of the foot and between the toes. The patient wears steel toe boots for work, which are wide, but may not provide adequate support. The patient works 10-hour days and experiences significant pain at the end of the workday. Related Data Previous Rx's Medication Instructions Recorded furosemide 20 mg tablet 10 mg (1/2 x 20 mg) PO QAM #45 tabs 07/16/23 lisinopril 40 mg tablet 40 mg PO DAILY #90 tabs 12/24/23 sertraline 25 mg tablet 25 mg PO DAILY #90 tabs 12/24/23 sitagliptin phosphate 25 mg tablet See Rx Instructions .Route 03/24/24 (Januvia) .COMPLEX #30 tabs Allergies Allergy/AdvReac Type Severity Reaction Status Date / Time escitalopram [From Lexapro] Allergy ADR-Vomitin Verified 12/24/23 12:40 g Review of Systems General: Reports: 10 or more systems reviewed and unremarkable except in HPI and below PFS ED PFSH: Medical History No pertinent family history Surgical History No pertinent past surgical history Social History Smoking and tobacco/nicotine status: current some day tobacco/nicotine user Physical Exam Const: COMMON NORMALS: no acute distress, patient oriented x3, healthy appearing, alert and well nourished HENMT: COMMON NORMALS: normocephalic HEAD & SCALP: normocephalic Eye: COMMON NORMALS: EOMs intact bilaterally Neck/C-Spine: COMMON NORMALS: full ROM and supple Resp: COMMON NORMALS: normal respiratory effort, No retractions and clear to auscultation bilaterally AUSCULTATION: clear to auscultation bilaterally Cardio: COMMON NORMALS: regular rate, regular rhythm, No gallops present (C ardio) and No murmurs present (Cardio) RATE: regular rate RHYTHM: regular rhythm GI: COMMON NORMALS: Soft to palpation and non-tender PALPATION: Yes Soft to palpation Extremity: GENERAL: Yes normal exam except as noted RIGHT LOWER EXTREMITY: Yes foot & digits (TTP bt 1st and 2nd metatarsal) Right foot and digits: Yes inspection, Yes ROM and Yes neurovascular exam Neuro: COMMON NORMALS: patient oriented x3 SENSORIUM/ORIENTATION: Yes alert Skin: COMMON NORMALS: no rashes or lesions noted GENERAL SKIN EXAM: no rashes or lesions noted Course Vital Signs: Vital signs: Vital Signs Temperature 98.1 F 05/26/24 18:48 Pulse Rate 79 05/26/24 18:48 Respiratory Rate 18 05/26/24 18:48 Blood Pressure 199/114 05/26/24 19:24 Pulse Oximetry 98 05/26/24 18:48 Oxygen Delivery Me thod Room Air 05/26/24 18:48 MDM - Extremity (Nontraumatic) Medical Decision Making Strauss's Neuroma Management: Patient presents with foot pain localized to the ball of the foot and between the toes, exacerbated by pressure and bending over, described as throbbing. 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 The clinician diagnoses Strauss's neuroma, a condition where a nerve between the toes becomes enlarged and compressed. Manage pain with nonsteroidal anti-inflammatory drugs. The patient was counseled on the mainstay of treatment for Strauss's neuroma as supportive shoe inserts and proper footwear. Lab Data Radiology Impressions Ankle X-Ray 05/26/24 18:52 IMPRESSION: 1. Stable metallic fixation of healed distal fibular shaft fracture. 2. Unusual 1.2 x 0.4 cm soft tissue ossification or calcification lateral to the calcaneal cuboid joint. Possible sequela from remote trauma. 3. 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 4. Possible healed posterior malleolar fracture noted on the lateral view. 5. Probable partial posttraumatic ossification of the tibial portion of the interosseous ligament between the tibia and fibula. Foot X-Ray 05/26/24 18:52 IMPRESSION: 1. Stable metallic fixation of healed distal fibular shaft fracture. 2. Unusual 1.2 x 0.4 cm soft tissue ossification or calcification lateral to the calcaneal cuboid joint. Possible sequela from remote trauma. 3. 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 4. Possible healed posterior malleolar fracture noted on the lateral view. 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 Condition: Stable Prescriptions: No Action lisinopril 40 mg tablet 40 mg PO DAILY Qty: 90 3RF sertraline 25 mg tablet 25 mg PO DAILY Qty: 90 2RF furosemide 20 mg tablet 10 mg PO QAM Qty: 45 2RF Januvia 25 mg tablet See Rx Instructions .ROUTE .COMPLEX Qty: 30 0RF Dose Instruction: Take 1 tablet by mouth once daily Rx Instructions: Take 1 tablet by mouth once daily Discharge Orders: Discharge ED (Routine); Ordered 05/26/24 Ordered By: Sotero Law Referrals: Torri Blair FNP [Primary Care Provider] - Discharge Diet: Advance as tolerated Discharge Activity: Resume usual activity Patient Instructions: Opioid Safety, Pain Management Activity Restrictions/Additional Instructions: Putting inserts into your work boots will likely help with this. As per our discussion, Tylenol ibuprofen for the pain. If this is not getting better in 1 to 2 weeks follow-up with your primary care physician for referral to physical therapy. Please return to the emergency department with any new or worsening symptoms. 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
== END 2024-05-26 23:36 | disposition home or self-care (01) ==
PROVIDERS: Emergency Provider General Practice; PCP Nurse Practitioner
DX: G57.61 Lesion of plantar nerve, right lower limb (principal)
CPT/HCPCS: 73610; 73630; 99283

== ENCOUNTER → 2024-11-23 09:53 | Outpatient (BNVA) | payer OTHER, SELFPAY | PROVIDERS: PCP Nurse Practitioner; Visit Provider Nurse Practitioner | DX: I10 Essential (primary) hypertension (principal); E11.9 Type 2 diabetes mellitus without complications | CPT/HCPCS: 80053; 80061; 83036; 85025 ==